=== PATIENT | female | born 1940 | race Caucasian/White ===

== ENCOUNTER 2017-03-10 08:39 | Emergency (ER) | payer OTHER ==
[~2017-03-10] VITALS: Ht 172.7 cm; Wt 81.6 kg
[2017-03-10 08:50] VITALS: BP_SYST 150
[2017-03-10] MEDS ORDERED: AMLO5TAB4 PO (09:07)
[2017-03-10] MEDS ORDERED: LEVO112T5 PO (09:07)
[2017-03-10] MEDS ORDERED: IBUP-1480 PO (09:07)
[2017-03-10] MEDS ORDERED: ATEN-166 PO (09:07)
[2017-03-10 09:39] LABS: PROTHROMBIN TIME 10.4 SECS (9.5-12.5)
[2017-03-10 09:44] LABS: BASOPHILS # (AUTO) 0.1 K/uL (0.0-0.2); BASOPHILS % (AUTO) 1.8 % (0.0-2.0); EOSINOPHILS # (AUTO) 0.1 K/uL (0.0-0.4); EOSINOPHILS % (AUTO) 0.8 % (0.0-4.0); HEMATOCRIT 45.8 % (36-48); HEMOGLOBIN 15.4 g/dL (12.0-16.0); LYMPHOCYTES # (AUTO) 0.8 K/uL (1.0-5.5); MEAN CORPUSCULAR HEMOGLOBIN 32 pg (27-31); MEAN CORPUSCULAR HGB CONC 34 % (32-36); MEAN CORPUSCULAR VOLUME 94 fL (79.0-98.0); MONOCYTES # (AUTO) 0.5 K/uL (0.0-1.0); MONOCYTES % (AUTO) 7.1 % (1.7-9.3); NEUTROPHILS # (AUTO) 5.6 K/uL (1.8-7.7); NEUTROPHILS % (AUTO) 79.3 % (40.0-70.0); PLATELET COUNT (AUTO) 132 K/uL (130-430); RED CELL DISTRIBUTION WIDTH 12.9 % (9.0-15.0); WHITE BLOOD COUNT (AUTO) 7.1 K/uL (4.8-10.8)
[2017-03-10 09:52] LABS: ANION GAP 7 (5-15); CALCIUM 8.5 mg/dL (8.4-11.0); CHLORIDE 105 mmol/L (98-107); GLUCOSE 111 mg/dL (70-99); POTASSIUM 3.8 mmol/L (3.5-5.1); SODIUM SERUM 137 mmol/L (136-145); UREA NITROGEN, BLOOD 18 mg/dL (8-21)
[2017-03-10 09:58] LABS: ALANINE AMINOTRANSFERASE 15 U/L (12-78); ALBUMIN 3.5 g/dL (3.4-4.8); ASPARTATE AMINOTRANSFERASE 17 U/L (10-37); LIPASE 90 U/L (73-393); TOTAL BILIRUBIN 0.6 mg/dL (0.0-1.0); TOTAL PROTEIN, SERUM 6.9 g/dL (6.4-8.3)
[2017-03-10 11:03] VITALS: BP_SYST 150
== END 2017-03-10 11:05 | disposition home or self-care (01) ==
LOC: SED 08:39
DX: K57.91 Diverticulosis of intestine, part unspecified, without perforation or abscess with bleeding (principal); I10 Essential (primary) hypertension; Z88.2 Allergy status to sulfonamides
CPT/HCPCS: 36415; 80053; 82272; 83690-TC; 85025; 85610-TC; 85730-TC; 93005; 99285

== ENCOUNTER 2018-06-24 15:22 | Emergency (ER) | payer OTHER, MEDICARE ==
[~2018-06-24] VITALS: Ht 172.7 cm; Wt 90.7 kg
[2018-06-24 15:22] VITALS: BP_SYST 156
[~2018-06-24 15:22] MED LIST: AMLO5TAB4 PO; ATEN-166 PO; IBUP-1971 PO; LEVO112T5 PO
[2018-06-24] MEDS ORDERED: LEVOFLOXACIN 500 MG/D5W 100 ML IV ONE (15:45)
[2018-06-24] MEDS ORDERED: ALBUTEROL SULFATE 0.083% 2.5 MG/3 ML VIAL.NEB INH ONE (15:45)
[2018-06-24] MEDS ORDERED: LEVO100T9 PO (16:12)
[2018-06-24] MEDS ORDERED: METO50TA7 PO (16:12)
[2018-06-24 17:45] VITALS: BP_SYST 135
== END 2018-06-24 17:45 | disposition home or self-care (01) ==
LOC: SED 15:22
DX: R53.1 Weakness (principal); R06.02 Shortness of breath; R42 Dizziness and giddiness; I10 Essential (primary) hypertension; Z88.2 Allergy status to sulfonamides; Z79.899 Other long term (current) drug therapy
CPT/HCPCS: 36415; 71045; 87040; 94640; 96365; 99285; J1956; J7613; 93005

== ENCOUNTER 2018-12-24 10:53 | Inpatient (IN) | payer OTHER ==
[2018-12-24] VITALS (7 sets, daily range): BP systolic 123–163
[~2018-12-24] VITALS: Ht 172.7 cm; Wt 83.9 kg
[~2018-12-24 10:53] MED LIST changes: -ATEN-166 PO; +LEVO100T9 PO; -LEVO112T5 PO; +METO50TA7 PO
[2018-12-24] MEDS ORDERED: NACL 0.9% 1,000 ML IV ONE (11:03)
[2018-12-24] MEDS ORDERED: methylPREDNISolone SOD SUCC/PF 62.5 MG/ML VIAL IVP ONE (11:15)
[2018-12-24] MEDS ORDERED: ALBUTEROL SULFATE 0.083% 2.5 MG/3 ML VIAL.NEB IH ONE (11:15)
[2018-12-24] MEDS ORDERED: IPRATROPIUM BROM 0.5 MG/2.5 ML VIAL.NEB (ATROVENT) IH ONE (11:15)
[2018-12-24 12:46] LABS: BASOPHILS # (AUTO) 0.1 K/uL (0.0-0.2); BASOPHILS % (AUTO) 0.9 % (0.0-2.0); EOSINOPHILS # (AUTO) 0.1 K/uL (0.0-0.4); EOSINOPHILS % (AUTO) 0.9 % (0.0-4.0); HEMATOCRIT 47.4 % (36-48); HEMOGLOBIN 15.7 g/dL (12.0-16.0); LYMPHOCYTES # (AUTO) 1.2 K/uL (1.0-5.5); LYMPHOCYTES % (AUTO) 15.1 % (20.5-51.5); MEAN CORPUSCULAR HEMOGLOBIN 32 pg (27-31); MEAN CORPUSCULAR HGB CONC 33 % (32-36); MEAN CORPUSCULAR VOLUME 97 fL (79.0-98.0); MONOCYTES # (AUTO) 0.6 K/uL (0.0-1.0); MONOCYTES % (AUTO) 8.2 % (1.7-9.3); NEUTROPHILS # (AUTO) 5.9 K/uL (1.8-7.7); NEUTROPHILS % (AUTO) 74.9 % (40.0-70.0); PLATELET COUNT (AUTO) 168 K/uL (130-430); RED BLOOD CELL COUNT(AUTO) 4.88 MIL/uL (4.2-6.2); RED CELL DISTRIBUTION WIDTH 13.7 % (9.0-15.0); WHITE BLOOD COUNT (AUTO) 7.9 K/uL (4.8-10.8)
[2018-12-24 12:56] LABS: ANION GAP 9 (5-15); CALCIUM 8.7 mg/dL (8.4-11.0); CHLORIDE 102 mmol/L (98-107); CREATININE 0.99 mg/dL (0.55-1.30); GLUCOSE 132 mg/dL (70-99); POTASSIUM 3.8 mmol/L (3.5-5.1); SODIUM SERUM 138 mmol/L (136-145); UREA NITROGEN, BLOOD 16 mg/dL (8-21)
[2018-12-24 13:03] LABS: PROTHROMBIN TIME 10.1 SECS (9.5-12.5)
[2018-12-24 13:07] LABS: ALANINE AMINOTRANSFERASE 13 U/L (12-78); ALBUMIN 3.2 g/dL (3.4-4.8); AMYLASE 30 U/L (0-100); ASPARTATE AMINOTRANSFERASE 15 U/L (10-37); LIPASE 97 U/L (73-393); TOTAL BILIRUBIN 0.8 mg/dL (0.0-1.0)
[2018-12-24] MEDS ORDERED: IOHEXOL 100 ML IV ONE (13:37)
[2018-12-24] MEDS ORDERED: DILTIAZEM HCL 25 MG/5 ML VIAL IVP ONE (14:15)
[2018-12-24] MEDS ORDERED: LEVO100T PO (14:51)
[2018-12-24] MEDS ORDERED: METO50TA7 PO (14:51)
[2018-12-24] MEDS ORDERED: APIX5TAB4 PO (14:51)
[2018-12-24] MEDS ORDERED: DILTIAZEM HCL 25 MG/5 ML VIAL IVP PRN (15:00)
[2018-12-24] MEDS ORDERED: IBUPROFEN 800 MG TABLET PO PRN (15:00)
[2018-12-24] MEDS ORDERED: METOPROLOL SUCCINATE 50 MG TAB.SR.24H (TOPROL XL) PO SCH ×3 (15:00→20:30)
[2018-12-24] MEDS ORDERED: *LOVENOX 1MG/KG Q12H/PHARMACY XX ONE (15:00)
[2018-12-24] MEDS ORDERED: PANTOPRAZOLE SODIUM 40 MG TAB PO ONE (15:00)
[2018-12-24] MEDS ORDERED: ACETAMINOPHEN 325 MG TABLET PO PRN (15:15)
[2018-12-24] MEDS ORDERED: IPRATROPIUM/ALBUTEROL SULFATE 3 ML AMPUL.NEB (DUONEB) INH PRN (15:15)
[2018-12-24] MEDS ORDERED: ZOLPIDEM TARTRATE 5 MG TABLET PO PRN (15:30)
[2018-12-24] MEDS ORDERED: cloNIDine HCL 0.1 MG TABLET PO PRN (15:30)
[2018-12-24 15:56] LABS: BILIRUBIN,URINE NEGATIVE (NEGATIVE); BLOOD, URINE 1+ (NEGATIVE); CLARITY/URINE CLEAR (CLEAR); COLOR,URINE YELLOW (YELLOW); GLUCOSE,URINE NEGATIVE (NEGATIVE); KETONES,URINE NEGATIVE (NEGATIVE); LEUKOCYTE ESTERASE ,URINE NEGATIVE (NEGATIVE); NITRITE, URINE NEGATIVE (NEGATIVE); PH,URINE 6.5 (5.0-8.0); PROTEIN URINE NEGATIVE (NEGATIVE); UROBILINOGEN,URINE 0.2 (0.2-1.0)
[2018-12-24 16:11] LABS: BACTERIA,URINE RARE /HPF (None Seen); MUCUS,URINE None Seen /LPF (None Seen); RBC,URINE 0-3 /HPF (0-3); WBC,URINE 0-3 /HPF (0-3)
[2018-12-24] MEDS ORDERED: AMIODARONE HCL 200 MG TABLET PO SCH ×2 (18:30→20:30)
[2018-12-24] MEDS: PANTOPRAZOLE SODIUM 40 MG TAB PO SCH (21:00)
[2018-12-24] MEDS ORDERED: METOPROLOL TARTRATE 50 MG TABLET PO SCH (21:00)
[2018-12-24] MEDS: APIXABAN 2.5 MG TABLET PO SCH (21:05)
[2018-12-25] MEDS: LEVOTHYROXINE SODIUM 0.1 MG TABLET PO SCH (06:56)
[2018-12-25 07:07] LABS: BASOPHILS # (AUTO) 0.1 K/uL (0.0-0.2); BASOPHILS % (AUTO) 1.7 % (0.0-2.0); HEMATOCRIT 46.5 % (36-48); HEMOGLOBIN 15.6 g/dL (12.0-16.0); LYMPHOCYTES # (AUTO) 0.6 K/uL (1.0-5.5); MEAN CORPUSCULAR HEMOGLOBIN 32 pg (27-31); MEAN CORPUSCULAR HGB CONC 34 % (32-36); MEAN CORPUSCULAR VOLUME 96 fL (79.0-98.0); MONOCYTES # (AUTO) 0.3 K/uL (0.0-1.0); MONOCYTES % (AUTO) 4.4 % (1.7-9.3); NEUTROPHILS # (AUTO) 5.8 K/uL (1.8-7.7); NEUTROPHILS % (AUTO) 84.9 % (40.0-70.0); PLATELET COUNT (AUTO) 175 K/uL (130-430); RED BLOOD CELL COUNT(AUTO) 4.83 MIL/uL (4.2-6.2); RED CELL DISTRIBUTION WIDTH 13.7 % (9.0-15.0); WHITE BLOOD COUNT (AUTO) 6.8 K/uL (4.8-10.8)
[2018-12-25 08:08] VITALS: BP_SYST 144
[2018-12-25 08:21] LABS: ANION GAP 10 (5-15); CHLORIDE 102 mmol/L (98-107); CHOLESTEROL 176 mg/dL (<200); CREATININE 0.79 mg/dL (0.55-1.30); GLUCOSE 143 mg/dL (70-99); LDL CHOLESTEROL 103 mg/dL (<100); POTASSIUM 3.9 mmol/L (3.5-5.1); SODIUM SERUM 134 mmol/L (136-145); THYROID STIMULATING HORMONE 0.91 uIu/mL (0.34-4.82); TRIGLYCERIDES 73 mg/dL (30-150); UREA NITROGEN, BLOOD 14 mg/dL (8-21)
[2018-12-25] MEDS: METOPROLOL SUCCINATE 50 MG TAB.SR.24H (TOPROL XL) PO SCH ×2 (08:27→20:30)
[2018-12-25] MEDS: PANTOPRAZOLE SODIUM 40 MG TAB PO SCH ×2 (08:27→20:30)
[2018-12-25] MEDS: AMIODARONE HCL 200 MG TABLET PO SCH ×2 (08:28→20:29)
[2018-12-25] MEDS: APIXABAN 2.5 MG TABLET PO SCH (08:28)
[2018-12-25] MEDS ORDERED: FUROSEMIDE 40 MG/4 ML VIAL IVP ONE (11:15)
[2018-12-25] MEDS ORDERED: LOSARTAN POTASSIUM 25 MG TABLET PO ONE (11:15)
[2018-12-25 11:40] LABS: HDL CHOLESTEROL 61 mg/dL (>55)
[2018-12-25 12:00] VITALS: BP_SYST 137
[2018-12-25 16:00] VITALS: BP_SYST 136
[2018-12-25 20:23] VITALS: BP_SYST 119
[2018-12-26 00:46] VITALS: BP_SYST 135
[2018-12-26] MEDS: LEVOTHYROXINE SODIUM 0.1 MG TABLET PO SCH (06:10)
[2018-12-26 08:19] LABS: ANION GAP 9 (5-15); CALCIUM 8.4 mg/dL (8.4-11.0); CHLORIDE 102 mmol/L (98-107); GLUCOSE 96 mg/dL (70-99); POTASSIUM 3.6 mmol/L (3.5-5.1); SODIUM SERUM 137 mmol/L (136-145); UREA NITROGEN, BLOOD 26 mg/dL (8-21)
[2018-12-26 08:28] VITALS: BP_SYST 126
[2018-12-26] MEDS: FUROSEMIDE 40 MG/4 ML VIAL IVP SCH (08:32)
[2018-12-26] MEDS: PANTOPRAZOLE SODIUM 40 MG TAB PO SCH ×2 (08:33→20:28)
[2018-12-26] MEDS: METOPROLOL SUCCINATE 50 MG TAB.SR.24H (TOPROL XL) PO SCH (08:33)
[2018-12-26] MEDS: LOSARTAN POTASSIUM 25 MG TABLET PO SCH (08:33)
[2018-12-26] MEDS: AMIODARONE HCL 200 MG TABLET PO SCH ×2 (08:33→20:28)
[2018-12-26 08:40] LABS: CREATININE 0.91 mg/dL (0.55-1.30)
[2018-12-26 12:03] VITALS: BP_SYST 129
[2018-12-26 16:10] VITALS: BP_SYST 121
[2018-12-26 20:25] VITALS: BP_SYST 106
[2018-12-26 23:52] VITALS: BP_SYST 115
[2018-12-27] MEDS: METOPROLOL SUCCINATE 50 MG TAB.SR.24H (TOPROL XL) PO SCH ×2 (00:01→08:42)
[2018-12-27] MEDS: LEVOTHYROXINE SODIUM 0.1 MG TABLET PO SCH (06:24)
[2018-12-27 07:41] VITALS: BP_SYST 116
[2018-12-27 08:10] VITALS: BP_SYST 113
[2018-12-27] MEDS: FUROSEMIDE 40 MG/4 ML VIAL IVP SCH (08:42)
[2018-12-27] MEDS: PANTOPRAZOLE SODIUM 40 MG TAB PO SCH (08:42)
[2018-12-27] MEDS: AMIODARONE HCL 200 MG TABLET PO SCH (08:43)
[2018-12-27] MEDS: LOSARTAN POTASSIUM 25 MG TABLET PO SCH (08:43)
[2018-12-27 11:36] VITALS: BP_SYST 116
[2018-12-27 12:10] VITALS: BP_SYST 116
== END 2018-12-27 12:40 | disposition short-term general hospital (02) | DRG 291 ==
LOC: SED 10:53 → STU 14:24
PROVIDERS: ADMIT Internal Medicine; ATTEND Internal Medicine
DX: I11.0 Hypertensive heart disease with heart failure (principal); I50.21 Acute systolic (congestive) heart failure; D68.59 Other primary thrombophilia; J44.1 Chronic obstructive pulmonary disease with (acute) exacerbation; I48.0 Paroxysmal atrial fibrillation; I08.0 Rheumatic disorders of both mitral and aortic valves; E03.9 Hypothyroidism, unspecified; Z88.2 Allergy status to sulfonamides; Z79.899 Other long term (current) drug therapy
CPT/HCPCS: 36415; 36600; 71045; 71275; 80048; 80053; 80061; 81000-TC; 82150-TC; 82550-TC; 82803-TC; 83605; 83690-TC; 83735-TC; 83880; 84439; 84443-TC; 84484; 85025; 85379; 85610-TC; 85730-TC; 87040-TC; 93005; 93306; 94640; 96361; 96374; 96375; 99285; G0378; J1940; J2930; J3490; J7613; Q9967

== ENCOUNTER 2023-12-25 14:15 | Inpatient (IN) | payer OTHER ==
[~2023-12-25] VITALS: Ht 170.2 cm; Wt 65.5 kg
[~2023-12-25 14:15] MED LIST changes: -AMLO5TAB4 PO; +APIX5TAB4 PO; +LEVO100T PO
[2023-12-25 14:33] VITALS: BP_SYST 140; PULSE 82; RESP 18; TEMP 97.8; O2SAT 99
[2023-12-25 15:00] LABS: BASOPHILS # (AUTO) 0.1 K/uL (0.0-0.2); BASOPHILS % (AUTO) 0.4 % (0.0-2.0); EOSINOPHILS # (AUTO) 0.1 K/uL (0.0-0.4); EOSINOPHILS % (AUTO) 0.6 % (0.0-4.0); HEMATOCRIT 49.4 % (36-48); HEMOGLOBIN 16.9 g/dL (12.0-16.0); LYMPHOCYTES # (AUTO) 0.9 K/uL (1.0-5.5); LYMPHOCYTES % (AUTO) 7.1 % (20.5-51.5); MEAN CORPUSCULAR HEMOGLOBIN 38 pg (27-31); MEAN CORPUSCULAR HGB CONC 34 % (32-36); MEAN CORPUSCULAR VOLUME 110 fL (79.0-98.0); MONOCYTES # (AUTO) 0.8 K/uL (0.0-1.0); MONOCYTES % (AUTO) 6.2 % (1.7-9.3); NEUTROPHILS % (AUTO) 85.7 % (40.0-70.0); PLATELET COUNT (AUTO) 135 K/uL (130-430); RED BLOOD CELL COUNT(AUTO) 4.48 MIL/uL (4.2-6.2); RED CELL DISTRIBUTION WIDTH 13.3 % (9.0-15.0); WHITE BLOOD COUNT (AUTO) 12.8 K/uL (4.8-10.8)
[2023-12-25 15:09] LABS: ANION GAP 8 (5-15); CALCIUM 9.7 mg/dL (8.4-11.0); CARBON DIOXIDE 29 mmol/L (23-29); CHLORIDE 99 mmol/L (98-107); CREATININE 1.09 mg/dL (0.55-1.30); GLUCOSE 165 mg/dL (74-106); INR 1.2 (0.8-1.2); POTASSIUM 4.2 mmol/L (3.5-5.1); SODIUM SERUM 136 mmol/L (136-145); UREA NITROGEN, BLOOD 21 mg/dL (8-21)
[2023-12-25 15:22] LABS: ALANINE AMINOTRANSFERASE 24 U/L (12-78); ALBUMIN 3.4 g/dL (3.4-4.8); BILIRUBIN,DIRECT 0.2 mg/dL (0.0-0.3); CREATINE KINASE, TOTAL 28 U/L (26-192); FREE T4 (FREE THYROXINE) 1.1 ng/dL (0.6-1.6); THYROID STIMULATING HORMONE 14.03 uIu/mL (0.34-4.82); TOTAL BILIRUBIN 0.8 mg/dL (0.0-1.0)
[2023-12-25 15:44] LABS: ASPARTATE AMINOTRANSFERASE 21 U/L (10-37)
[2023-12-25 16:09] LABS: ACETONE, SERUM NEGATIVE (NEGATIVE)
[2023-12-25] MEDS: NACL 0.9% 1,000 ML IV ONE (16:22)
[2023-12-25 16:54] LABS: BILIRUBIN,URINE NEGATIVE (NEGATIVE); BLOOD, URINE 1+ (NEGATIVE); CLARITY/URINE CLEAR (CLEAR); COLOR,URINE YELLOW (YELLOW); GLUCOSE,URINE 3+ (NEGATIVE); KETONES,URINE TRACE (NEGATIVE); LEUKOCYTE ESTERASE ,URINE 1+ (NEGATIVE); NITRITE, URINE NEGATIVE (NEGATIVE); PH,URINE 6.5 (5.0-8.0); PROTEIN URINE NEGATIVE (NEGATIVE); UROBILINOGEN,URINE 0.2 (0.2-1.0)
[2023-12-25 17:00] LABS: BACTERIA,URINE FEW /HPF (None Seen); MUCUS,URINE None Seen /LPF (None Seen); RBC,URINE 0-3 /HPF (0-3)
[2023-12-25] MEDS: cefTRIAXone 1 GM in D5W 50 ML IV ONE (17:07)
[2023-12-25] MEDS ORDERED: cefTRIAXone 1 GM VIAL ONE (17:12)
[2023-12-25] MEDS ORDERED: APIX5TAB PO (17:48)
[2023-12-25] MEDS ORDERED: DAPA10TA PO (17:48)
[2023-12-25] MEDS ORDERED: ENTRESTO PO (17:48)
[2023-12-25] MEDS ORDERED: DOFE250C4 PO (17:48)
[2023-12-25] MEDS ORDERED: SPIR25TA PO (17:48)
[2023-12-25] MEDS ORDERED: LIP10 PO (17:48)
[2023-12-25] MEDS ORDERED: PRED10TA PO (17:48)
[2023-12-25] MEDS ORDERED: LEVO88TA2 PO (17:48)
[2023-12-25 17:57] LABS: INFLUENZA TYPE A Negative (NEGATIVE); INFLUENZA TYPE B NEGATIVE (NEGATIVE)
[2023-12-25] MEDS ORDERED: LOPERAMIDE HCL 2 MG CAPSULE PO PRN (23:00)
[2023-12-25 23:02] VITALS: BP_SYST 129; PULSE 79; RESP 20; TEMP 98.5
[2023-12-25 23:15] VITALS: O2SAT 95
[2023-12-26] VITALS (7 sets, daily range): BP systolic 106–135; PULSE 72–84; RESP 16–20; TEMP 96.8–98.7; O2SAT 95–96
[2023-12-26 06:05] LABS: BASOPHILS % (AUTO) 0.4 % (0.0-2.0); EOSINOPHILS # (AUTO) 0.1 K/uL (0.0-0.4); EOSINOPHILS % (AUTO) 1.3 % (0.0-4.0); HEMATOCRIT 44.6 % (36-48); HEMOGLOBIN 15.4 g/dL (12.0-16.0); LYMPHOCYTES # (AUTO) 1.6 K/uL (1.0-5.5); MEAN CORPUSCULAR HEMOGLOBIN 38 pg (27-31); MEAN CORPUSCULAR HGB CONC 35 % (32-36); MEAN CORPUSCULAR VOLUME 110 fL (79.0-98.0); MONOCYTES # (AUTO) 1.1 K/uL (0.0-1.0); MONOCYTES % (AUTO) 11.7 % (1.7-9.3); NEUTROPHILS # (AUTO) 6.2 K/uL (1.8-7.7); NEUTROPHILS % (AUTO) 68.6 % (40.0-70.0); PLATELET COUNT (AUTO) 118 K/uL (130-430); RED BLOOD CELL COUNT(AUTO) 4.06 MIL/uL (4.2-6.2); RED CELL DISTRIBUTION WIDTH 13.1 % (9.0-15.0)
[2023-12-26 06:17] LABS: ANION GAP 9 (5-15); CALCIUM 8.7 mg/dL (8.4-11.0); CARBON DIOXIDE 24 mmol/L (23-29); CHLORIDE 103 mmol/L (98-107); CREATININE 0.61 mg/dL (0.55-1.30); GLUCOSE 77 mg/dL (74-106); POTASSIUM 3.4 mmol/L (3.5-5.1); SODIUM SERUM 136 mmol/L (136-145); UREA NITROGEN, BLOOD 14 mg/dL (8-21)
[2023-12-26 06:24] LABS: ALANINE AMINOTRANSFERASE 20 U/L (12-78); ALBUMIN 2.8 g/dL (3.4-4.8); ASPARTATE AMINOTRANSFERASE 15 U/L (10-37); TOTAL BILIRUBIN 0.8 mg/dL (0.0-1.0); TOTAL PROTEIN, SERUM 5.7 g/dL (6.4-8.3)
[2023-12-26] MEDS: LEVOTHYROXINE SODIUM 0.1 MG TABLET PO SCH (06:36)
[2023-12-26] MEDS: metroNIDAZOLE 250 MG TABLET PO SCH (06:36)
[2023-12-26] MEDS: SPIRONOLACTONE 25 MG TABLET (ALDACTONE) PO SCH (08:45)
[2023-12-26] MEDS: predniSONE 10 MG TABLET PO SCH (08:46)
[2023-12-26] MEDS: METOPROLOL SUCCINATE 50 MG TAB.SR.24H (TOPROL XL) PO SCH (08:47)
[2023-12-26] MEDS: EMPAGLIFLOZIN 10 MG TABLET PO SCH (08:49)
[2023-12-26] MEDS: APIXABAN 2.5 MG TABLET PO SCH (08:54)
[2023-12-26] MEDS ORDERED: DOFETILIDE 250 MCG PO SCH (09:00)
[2023-12-26] MEDS ORDERED: NON-FORMULARY MEDICATION (Dapagliflozin Propanediol (Farxiga) 10 MG) PO SCH (09:00)
[2023-12-26] MEDS ORDERED: ATORVASTATIN 10 MG TABLET PO SCH (09:00)
[2023-12-26] MEDS: SACUBITRIL/VALSARTAN 24 MG-26 MG 1 TABLET PO ONE (10:47)
[2023-12-26] MEDS: FOLIC ACID 1 MG TABLET PO ONE (17:57)
[2023-12-26] MEDS: POTASSIUM CHLORIDE 20 MEQ TABLET.ER PO ONE (17:57)
[2023-12-26] MEDS: CHOLECALCIFEROL (VITAMIN D3) 5,000 UNIT TABLET PO ONE (17:57)
[2023-12-26] MEDS: MULTIVITAMINS TAB 1 TABLET PO ONE (17:57)
[2023-12-26] MEDS: ATORVASTATIN 10 MG TABLET PO SCH (21:03)
[2023-12-26] MEDS: MULTIVITAMINS TAB 1 TABLET PO SCH (21:03)
[2023-12-26] MEDS: SACUBITRIL/VALSARTAN 24 MG-26 MG 1 TABLET PO SCH (21:05)
[2023-12-26] MEDS: DOFETILIDE 250 MCG PO SCH (22:02)
[2023-12-27] VITALS (7 sets, daily range): BP systolic 105–120; PULSE 72–82; RESP 16–18; TEMP 96.2–97.5; O2SAT 94–96
[2023-12-27 05:12] LABS: BASOPHILS % (AUTO) 0.5 % (0.0-2.0); EOSINOPHILS # (AUTO) 0.1 K/uL (0.0-0.4); EOSINOPHILS % (AUTO) 1.4 % (0.0-4.0); HEMATOCRIT 46.7 % (36-48); HEMOGLOBIN 15.9 g/dL (12.0-16.0); LYMPHOCYTES # (AUTO) 1.4 K/uL (1.0-5.5); LYMPHOCYTES % (AUTO) 17.1 % (20.5-51.5); MEAN CORPUSCULAR HEMOGLOBIN 38 pg (27-31); MEAN CORPUSCULAR HGB CONC 34 % (32-36); MEAN CORPUSCULAR VOLUME 111 fL (79.0-98.0); MONOCYTES # (AUTO) 0.9 K/uL (0.0-1.0); MONOCYTES % (AUTO) 10.2 % (1.7-9.3); NEUTROPHILS % (AUTO) 70.8 % (40.0-70.0); PLATELET COUNT (AUTO) 124 K/uL (130-430); RED BLOOD CELL COUNT(AUTO) 4.22 MIL/uL (4.2-6.2); RED CELL DISTRIBUTION WIDTH 13.3 % (9.0-15.0); WHITE BLOOD COUNT (AUTO) 8.5 K/uL (4.8-10.8)
[2023-12-27 05:49] LABS: ALANINE AMINOTRANSFERASE 21 U/L (12-78); ALBUMIN 2.9 g/dL (3.4-4.8); ANION GAP 7 (5-15); ASPARTATE AMINOTRANSFERASE 17 U/L (10-37); CALCIUM 9.1 mg/dL (8.4-11.0); CARBON DIOXIDE 25 mmol/L (23-29); CHLORIDE 104 mmol/L (98-107); CREATININE 0.77 mg/dL (0.55-1.30); FREE T4 (FREE THYROXINE) 1.1 ng/dL (0.6-1.6); GLUCOSE 91 mg/dL (74-106); POTASSIUM 3.9 mmol/L (3.5-5.1); SODIUM SERUM 136 mmol/L (136-145); THYROID STIMULATING HORMONE 18.66 uIu/mL (0.34-4.82); TOTAL PROTEIN, SERUM 6.2 g/dL (6.4-8.3); UREA NITROGEN, BLOOD 13 mg/dL (8-21)
[2023-12-27] MEDS: LEVOTHYROXINE SODIUM 0.125 MG TABLET PO SCH (06:21)
[2023-12-27] MEDS: LEVOFLOXACIN 250 MG/D5W 50 ML IV SCH (09:34)
[2023-12-27] MEDS: FOLIC ACID 1 MG TABLET PO SCH (10:02)
[2023-12-27] MEDS: predniSONE 5 MG TABLET PO SCH (10:04)
[2023-12-27] MEDS: CHOLECALCIFEROL (VITAMIN D3) 5,000 UNIT TABLET PO SCH (10:04)
[2023-12-27] MEDS ORDERED: SACU1TAB PO (11:12)
[2023-12-27] MEDS: POTASSIUM CHLORIDE 20 MEQ/PKT PACKET PO ONE (14:53)
[2023-12-27] MEDS ORDERED: LEVO125T PO (15:30)
[2023-12-27] MEDS ORDERED: CHOL500013 PO (15:34)
[2023-12-27] MEDS ORDERED: METR-343 PO (15:34)
[2023-12-27] MEDS ORDERED: MULT400T13 PO (15:34)
[2023-12-27] MEDS ORDERED: CEPH250C PO (15:34)
== END 2023-12-27 17:24 | disposition home health service (06) | DRG 392 ==
LOC: SED 14:15 → SMU 17:29 → STU 22:30 → SMU 12-26 17:03
PROVIDERS: ADMIT Internal Medicine; ATTEND Internal Medicine
DX: K52.9 Noninfective gastroenteritis and colitis, unspecified (principal); N39.0 Urinary tract infection, site not specified; I48.20 Chronic atrial fibrillation, unspecified; I50.42 Chronic combined systolic (congestive) and diastolic (congestive) heart failure; J84.9 Interstitial pulmonary disease, unspecified; D68.59 Other primary thrombophilia; E44.1 Mild protein-calorie malnutrition; E86.0 Dehydration; Z20.822 Contact with and (suspected) exposure to COVID-19; I11.0 Hypertensive heart disease with heart failure; E03.9 Hypothyroidism, unspecified; E78.5 Hyperlipidemia, unspecified; D72.829 Elevated white blood cell count, unspecified; E55.9 Vitamin D deficiency, unspecified; Z95.0 Presence of cardiac pacemaker; Z79.899 Other long term (current) drug therapy; Z88.2 Allergy status to sulfonamides; Z68.22 Body mass index [BMI] 22.0-22.9, adult
CPT/HCPCS: 36415; 70450-TC; 71045; 80048; 80053; 80076; 81000; 81001; 81015; 82009; 82550; 83605; 83735; 83880; 84439; 84443; 84484; 85025; 85610; 85730; 87040; 87086; 93005; 96365; 97110-GP; 97116-GP; 97530-GP; 99285; G0378; J0696; J1956; J7512